=== PATIENT | female | born 1960 | race Asian ===

== ENCOUNTER 2022-03-10 18:37 | Inpatient (IN) | payer OTHER ==
[~2022-03-10] VITALS: Ht 160 cm; Wt 66.6 kg
[2022-03-10] MEDS ORDERED: SODIUM CHLORIDE 0.9% 250 ML IV ONE (19:00)
[2022-03-10] MEDS ORDERED: ATROPINE SULFATE 1MG/10ML SYR IV ONE ×2 (19:30→21:45)
[2022-03-10 19:37] LABS: HEMATOCRIT. 23.9 % (36.0-48.0); HEMOGLOBIN. 7.6 g/dL (12.0-16.0); MEAN CORPUSCULAR HEMOGLOBIN 30.4 pg (28.0-32.0); MEAN CORPUSCULAR VOLUME 94.9 fL (81.0-99.0); MEAN PLATELET VOLUME 10.1 fl (7.4-10.4); PLATELET 58 x1000/uL (130-400); RED BLOOD CELL COUNT 2.51 mill/uL (4.2-5.4); RED CELL DISTRIBUTION WIDTH 20.2 % (11.6-14.6)
[2022-03-10 19:45] LABS: CHLORIDE 99 mEq/L (98-107)
[2022-03-10 20:04] LABS: T4 FREE 0.84 ng/dL (0.76-1.46)
[2022-03-10 20:09] LABS: PLATELET ESTIMATE DECREASED
[2022-03-10] MEDS ORDERED: CALCIUM GLUCONATE 100MG/ML 10ML VIAL IV NR (20:15)
[2022-03-10 21:02] LABS: CLARITY URINE CLOUDY (CLEAR); COLOR URINE DARK YELLOW (YELLOW); KETONES URINE TRACE (NEGATIVE); LEUKOCYTE ESTERASE URINE 2+ (NEGATIVE); NITRITE URINE NEGATIVE (NEGATIVE); OCCULT BLOOD URINE TRACE (NEGATIVE); PROTEIN URINE 2+ (NEGATIVE); SPECIFIC GRAVITY URINE 1.021 (1.005-1.030)
[2022-03-11] MEDS ORDERED: ACETAMINOPHEN 325MG TABLET PO PRN (10:00)
[2022-03-11] MEDS ORDERED: ONDANSETRON HCL 4MG/2ML INJ IV PRN (10:00)
[2022-03-11] MEDS ORDERED: IPRATROPIUM/ALBUTEROL 0.5-3(2.5)MG/3ML NEB HHN PRN (10:00)
[2022-03-11] MEDS ORDERED: DIPHENHYDRAMINE 50MG/ML VIAL IV PRN (10:00)
[2022-03-11] MEDS ORDERED: DOPAMINE 400MG/250ML PREMIX 250 ML IV PRN (10:30)
[2022-03-11] MEDS ORDERED: ATROPINE SULFATE 1MG/10ML SYR IV PRN (10:30)
[2022-03-11] MEDS: FUROSEMIDE 40MG/4ML VIAL IVP SCH ×2 (11:35→17:24)
[2022-03-11] MEDS ORDERED: LEVOTHYROXINE SODIUM 100 MCG/ VIAL IV NR (13:30)
[2022-03-11 18:21] LABS: TOTAL IRON BINDING CAPACITY 169 ug/dL (250-450)
[2022-03-11 18:25] LABS: CREATINE KINASE 45 IU/L (26-192)
[2022-03-11 18:33] LABS: FOLIC ACID (FOLATE) SERUM 10.6 ng/mL (>5.38)
[2022-03-12 05:44] LABS: HEMATOCRIT. 24.3 % (36.0-48.0); MEAN CORPUSCULAR HEMOGLOBIN 31.2 pg (28.0-32.0); MEAN CORPUSCULAR VOLUME 94.5 fL (81.0-99.0); MEAN PLATELET VOLUME 10.2 fl (7.4-10.4); PLATELET 68 x1000/uL (130-400); RED BLOOD CELL COUNT 2.57 mill/uL (4.2-5.4); RED CELL DISTRIBUTION WIDTH 20.2 % (11.6-14.6)
[2022-03-12 05:47] LABS: CHLORIDE 100 mEq/L (98-107)
[2022-03-12 11:00] VITALS: BP 143/55
[2022-03-12 12:00] VITALS: BP 143/55
[2022-03-12] MEDS ORDERED: INSULIN LISPRO 100 UNITS/ML SUBCUT SCH (12:45)
[2022-03-12] MEDS: INSULIN LISPRO (LOW DOSE) 100 UNITS/ML SUBCUT SCH ×2 (14:45→18:49)
[2022-03-12 16:00] VITALS: BP 129/54
[2022-03-12] MEDS: LEVOTHYROXINE SODIUM 100 MCG/ VIAL IV SCH (16:05)
[2022-03-12 16:34] LABS: PLATELET ESTIMATE DECREASED
[2022-03-12] MEDS: BLOOD SUGAR DIAGNOSTIC STRIP TEST SCH ×2 (17:10→20:41)
[2022-03-12] MEDS: FUROSEMIDE 40MG/4ML VIAL IVP SCH (18:48)
[2022-03-12 20:00] VITALS: BP 142/59
[2022-03-13] VITALS: BP 142/47
[2022-03-13 04:00] VITALS: BP 157/57
[2022-03-13] MEDS: FUROSEMIDE 40MG/4ML VIAL IVP SCH ×2 (05:49→19:23)
[2022-03-13] MEDS: INSULIN LISPRO (LOW DOSE) 100 UNITS/ML SUBCUT SCH ×3 (05:53→17:10)
[2022-03-13] MEDS: BLOOD SUGAR DIAGNOSTIC STRIP TEST SCH ×4 (05:53→21:04)
[2022-03-13 06:20] LABS: EOSINOPHILS % 1.4 % (0.0-5.0); HEMATOCRIT. 25.4 % (36.0-48.0); HEMOGLOBIN. 8.3 g/dL (12.0-16.0); LYMPHOCYTES % 15.3 % (20.0-50.0); MEAN CORPUSCULAR HEMOGLOBIN 30.5 pg (28.0-32.0); MEAN CORPUSCULAR VOLUME 93.4 fL (81.0-99.0); MEAN PLATELET VOLUME 10.2 fl (7.4-10.4); MONOCYTES % 9.2 % (2.0-8.0); NEUTROPHILS % 73.1 % (40.0-76.0); PLATELET 83 x1000/uL (130-400); RED BLOOD CELL COUNT 2.72 mill/uL (4.2-5.4); RED CELL DISTRIBUTION WIDTH 20.6 % (11.6-14.6)
[2022-03-13 06:38] LABS: HEPATITIS B SURFACE ANTIGEN NEGATIVE
[2022-03-13 08:00] VITALS: BP 158/64
[2022-03-13 12:00] VITALS: BP 141/61
[2022-03-13 16:00] VITALS: BP 143/58
[2022-03-13] MEDS: LEVOTHYROXINE SODIUM 100 MCG/ VIAL IV SCH (19:23)
[2022-03-13 20:00] VITALS: BP 143/49
[2022-03-14] VITALS (7 sets, daily range): BP systolic 142–167; BP diastolic 56–69
[2022-03-14] MEDS: FUROSEMIDE 40MG/4ML VIAL IVP SCH ×2 (05:43→18:25)
[2022-03-14 05:51] LABS: BASOPHILS % 0.7 % (0.0-2.0); EOSINOPHILS % 0.7 % (0.0-5.0); HEMATOCRIT. 24.3 % (36.0-48.0); HEMOGLOBIN. 8.1 g/dL (12.0-16.0); MEAN CORPUSCULAR HEMOGLOBIN 31.2 pg (28.0-32.0); MEAN CORPUSCULAR VOLUME 93.6 fL (81.0-99.0); MEAN PLATELET VOLUME 9.5 fl (7.4-10.4); NEUTROPHILS % 71.6 % (40.0-76.0); PLATELET 84 x1000/uL (130-400)
[2022-03-14] MEDS: BLOOD SUGAR DIAGNOSTIC STRIP TEST SCH ×4 (06:02→20:17)
[2022-03-14] MEDS: INSULIN LISPRO (LOW DOSE) 100 UNITS/ML SUBCUT SCH ×3 (06:04→18:26)
[2022-03-14 09:06] LABS: ANTI-NUCLEAR ANTIBODIES DIRECT Negative (Negative)
[2022-03-14] MEDS: LEVOTHYROXINE SODIUM 100 MCG/ VIAL IV SCH (09:59)
[2022-03-14] MEDS: HYDRALAZINE 20MG/ML VIAL IV PRN (10:00)
[2022-03-15] VITALS (7 sets, daily range): BP systolic 124–176; BP diastolic 52–89
[2022-03-15] MEDS: BLOOD SUGAR DIAGNOSTIC STRIP TEST SCH ×4 (06:41→21:16)
[2022-03-15] MEDS: FUROSEMIDE 40MG/4ML VIAL IVP SCH ×2 (06:41→18:49)
[2022-03-15] MEDS: INSULIN LISPRO (LOW DOSE) 100 UNITS/ML SUBCUT SCH ×3 (06:57→17:10)
[2022-03-15 07:20] LABS: BASOPHILS % 0.3 % (0.0-2.0); EOSINOPHILS % 0.8 % (0.0-5.0); HEMATOCRIT. 24.1 % (36.0-48.0); HEMOGLOBIN. 8.1 g/dL (12.0-16.0); LYMPHOCYTES % 11.7 % (20.0-50.0); MEAN CORPUSCULAR HEMOGLOBIN 31.5 pg (28.0-32.0); MEAN CORPUSCULAR VOLUME 93.2 fL (81.0-99.0); MEAN PLATELET VOLUME 8.3 fl (7.4-10.4); MONOCYTES % 8.7 % (2.0-8.0); NEUTROPHILS % 78.5 % (40.0-76.0); PLATELET 72 x1000/uL (130-400); RED BLOOD CELL COUNT 2.58 mill/uL (4.2-5.4); RED CELL DISTRIBUTION WIDTH 19.9 % (11.6-14.6)
[2022-03-15 07:47] LABS: INR 1.2; PARTIAL THROMBOPLASTIN TIME 34.6 sec (23.4-31.0); PROTHROMBIN TIME 12.4 sec (9.6-11.0)
[2022-03-15] MEDS: LEVOTHYROXINE SODIUM 100 MCG/ VIAL IV SCH (08:18)
[2022-03-15] MEDS: HYDRALAZINE 20MG/ML VIAL IV PRN (08:18)
[2022-03-15 10:14] LABS: CHLORIDE 96 mEq/L (98-107)
[2022-03-15] MEDS: AMLODIPINE 10MG TABLET PO SCH (10:53)
[2022-03-15] MEDS ORDERED: FENTANYL CITRATE/PF 50MCG/ML 2ML VIAL ONE (10:59)
[2022-03-15] MEDS ORDERED: PROPOFOL 200MG/20ML VIAL IV ONE (11:00)
[2022-03-15] MEDS: HYDRALAZINE HCL 25MG TABLET PO SCH ×2 (13:21→21:33)
[2022-03-15 14:12] LABS: BG BASE EXCESS 13.1 mmol/L (-2.0-2.0); BG CARBOXYHEMOGLOBIN 0.9 % (0.5-1.5); BG DEOXYHEMOGLOBIN 1.7 % (0.0-5.0); BG HCO3 ACT 38.6 mmol/L (22.0-26.0); BG METHEMOGLOBIN 0.3 % (0.0-1.5); BG OXYGEN SATURATION 98.3 % (92.0-98.5); BG OXYHEMOGLOBIN 97.1 % (94.0-97.0); BG PCO2 56.2 mmHg (35.0-45.0); BG PH 7.455 (7.350-7.450); BG PO2 131.3 mmHg (75.0-100.0); BG SAMPLE SITE RIGHT BRACHIAL; BG TOTAL HEMOGLOBIN 8.5 g/dL (12.0-18.0); BG VENT MODE NASAL CANNULA
[2022-03-16] VITALS: BP 153/51
[2022-03-16 04:00] VITALS: BP 157/58
[2022-03-16] MEDS: BLOOD SUGAR DIAGNOSTIC STRIP TEST SCH ×4 (06:11→20:17)
[2022-03-16] MEDS: INSULIN LISPRO (LOW DOSE) 100 UNITS/ML SUBCUT SCH ×3 (06:11→18:27)
[2022-03-16] MEDS: FUROSEMIDE 40MG/4ML VIAL IVP SCH ×2 (06:15→18:31)
[2022-03-16] MEDS: HYDRALAZINE HCL 25MG TABLET PO SCH ×3 (06:16→21:08)
[2022-03-16 06:51] LABS: BASOPHILS % 0.5 % (0.0-2.0); HEMATOCRIT. 23.5 % (36.0-48.0); HEMOGLOBIN. 7.8 g/dL (12.0-16.0); LYMPHOCYTES % 17.6 % (20.0-50.0); MEAN CORPUSCULAR HEMOGLOBIN 31.1 pg (28.0-32.0); MEAN CORPUSCULAR VOLUME 94.2 fL (81.0-99.0); MEAN PLATELET VOLUME 8.8 fl (7.4-10.4); MONOCYTES % 10.3 % (2.0-8.0); NEUTROPHILS % 69.6 % (40.0-76.0); PLATELET 82 x1000/uL (130-400); RED BLOOD CELL COUNT 2.49 mill/uL (4.2-5.4); RED CELL DISTRIBUTION WIDTH 20.2 % (11.6-14.6)
[2022-03-16 08:00] VITALS: BP 149/57
[2022-03-16] MEDS: ISOSORBIDE MONONITRATE 30MG TABLET SR 24HR PO SCH (09:01)
[2022-03-16] MEDS: AMLODIPINE 10MG TABLET PO SCH (09:01)
[2022-03-16] MEDS: LEVOTHYROXINE SODIUM 100 MCG/ VIAL IV SCH (11:34)
[2022-03-16 12:00] VITALS: BP 140/54
[2022-03-16 16:00] VITALS: BP 114/56
[2022-03-16] MEDS ORDERED: ACETAZOLAMIDE 500MG ER CAPSULE PO NR (16:30)
[2022-03-16 20:00] VITALS: BP 141/61
[2022-03-17] VITALS: BP 135/51
[2022-03-17 03:23] LABS: CHLORIDE 97 mEq/L (98-107)
[2022-03-17 04:00] VITALS: BP 161/50
[2022-03-17] MEDS: HYDRALAZINE HCL 25MG TABLET PO SCH ×3 (05:49→21:37)
[2022-03-17] MEDS: FUROSEMIDE 40MG/4ML VIAL IVP SCH ×2 (05:50→17:45)
[2022-03-17] MEDS: BLOOD SUGAR DIAGNOSTIC STRIP TEST SCH ×4 (05:54→20:18)
[2022-03-17] MEDS: INSULIN LISPRO (LOW DOSE) 100 UNITS/ML SUBCUT SCH ×3 (05:54→17:46)
[2022-03-17 08:00] VITALS: BP 156/64
[2022-03-17 08:59] LABS: BG BASE EXCESS 11.8 mmol/L (-2.0-2.0); BG CARBOXYHEMOGLOBIN 0.4 % (0.5-1.5); BG DEOXYHEMOGLOBIN 0.8 % (0.0-5.0); BG FRACTION INSPIRED OXYGEN 36; BG HCO3 ACT 36.2 mmol/L (22.0-26.0); BG METHEMOGLOBIN 0.3 % (0.0-1.5); BG OXYGEN SATURATION 99.2 % (92.0-98.5); BG OXYHEMOGLOBIN 98.5 % (94.0-97.0); BG PCO2 47.4 mmHg (35.0-45.0); BG PH 7.501 (7.350-7.450); BG PO2 179.6 mmHg (75.0-100.0); BG SAMPLE SITE RIGHT RADIAL; BG TOTAL HEMOGLOBIN 8.5 g/dL (12.0-18.0); BG VENT MODE NASAL CANNULA
[2022-03-17] MEDS: LEVOTHYROXINE SODIUM 100 MCG/ VIAL IV SCH (09:24)
[2022-03-17] MEDS: AMLODIPINE 10MG TABLET PO SCH (09:25)
[2022-03-17] MEDS: ISOSORBIDE MONONITRATE 30MG TABLET SR 24HR PO SCH (09:25)
[2022-03-17 12:00] VITALS: BP 135/54
[2022-03-17 16:00] VITALS: BP 117/60
[2022-03-17 20:00] VITALS: BP 146/63
[2022-03-18] VITALS (10 sets, daily range): BP systolic 103–151; BP diastolic 51–80
[2022-03-18] MEDS: HYDRALAZINE HCL 25MG TABLET PO SCH ×3 (05:46→22:00)
[2022-03-18] MEDS: FUROSEMIDE 40MG/4ML VIAL IVP SCH ×2 (05:46→17:06)
[2022-03-18] MEDS: BLOOD SUGAR DIAGNOSTIC STRIP TEST SCH ×4 (06:16→21:00)
[2022-03-18] MEDS: INSULIN LISPRO (LOW DOSE) 100 UNITS/ML SUBCUT SCH ×3 (06:16→16:50)
[2022-03-18 07:40] LABS: EOSINOPHILS % 2.8 % (0.0-5.0); HEMATOCRIT. 24.9 % (36.0-48.0); HEMOGLOBIN. 8.1 g/dL (12.0-16.0); MEAN CORPUSCULAR HEMOGLOBIN 31.4 pg (28.0-32.0); MEAN CORPUSCULAR VOLUME 96.3 fL (81.0-99.0); MEAN PLATELET VOLUME 9.1 fl (7.4-10.4); MONOCYTES % 12.7 % (2.0-8.0); NEUTROPHILS % 63.5 % (40.0-76.0); PLATELET 104 x1000/uL (130-400); RED BLOOD CELL COUNT 2.59 mill/uL (4.2-5.4)
[2022-03-18] MEDS: LEVOTHYROXINE SODIUM 100 MCG/ VIAL IV SCH (08:26)
[2022-03-18] MEDS: AMLODIPINE 10MG TABLET PO SCH (08:27)
[2022-03-18] MEDS: ISOSORBIDE MONONITRATE 30MG TABLET SR 24HR PO SCH (08:27)
[2022-03-18] MEDS ORDERED: POTASSIUM CHLORIDE 20MEQ TABLET SR PO SCH (11:15)
[2022-03-18 16:36] LABS: BG BASE EXCESS 13.7 mmol/L (-2.0-2.0); BG CARBOXYHEMOGLOBIN 0.3 % (0.5-1.5); BG DEOXYHEMOGLOBIN 12.2 % (0.0-5.0); BG FRACTION INSPIRED OXYGEN 21; BG HCO3 ACT 39.4 mmol/L (22.0-26.0); BG METHEMOGLOBIN 0.4 % (0.0-1.5); BG OXYGEN SATURATION 87.7 % (92.0-98.5); BG OXYHEMOGLOBIN 87.1 % (94.0-97.0); BG PO2 52.9 mmHg (75.0-100.0); BG SAMPLE SITE RIGHT RADIAL; BG TOTAL HEMOGLOBIN 8.5 g/dL (12.0-18.0); BG VENT MODE ROOM AIR
[2022-03-19] VITALS: BP 112/80
[2022-03-19 04:00] VITALS: BP 148/60
[2022-03-19] MEDS: BLOOD SUGAR DIAGNOSTIC STRIP TEST SCH ×4 (06:12→21:55)
[2022-03-19] MEDS: INSULIN LISPRO (LOW DOSE) 100 UNITS/ML SUBCUT SCH ×3 (06:12→16:39)
[2022-03-19 06:36] LABS: BASOPHILS % 0.8 % (0.0-2.0); EOSINOPHILS % 2.9 % (0.0-5.0); HEMATOCRIT. 24.9 % (36.0-48.0); HEMOGLOBIN. 8.3 g/dL (12.0-16.0); LYMPHOCYTES % 23.4 % (20.0-50.0); MEAN CORPUSCULAR HEMOGLOBIN 31.8 pg (28.0-32.0); MEAN CORPUSCULAR VOLUME 95.3 fL (81.0-99.0); MEAN PLATELET VOLUME 8.8 fl (7.4-10.4); NEUTROPHILS % 58.9 % (40.0-76.0); PLATELET 100 x1000/uL (130-400); RED BLOOD CELL COUNT 2.61 mill/uL (4.2-5.4); RED CELL DISTRIBUTION WIDTH 20.2 % (11.6-14.6)
[2022-03-19] MEDS: HYDRALAZINE HCL 25MG TABLET PO SCH ×3 (06:41→21:55)
[2022-03-19] MEDS: FUROSEMIDE 40MG/4ML VIAL IVP SCH ×2 (06:41→17:26)
[2022-03-19 08:12] VITALS: BP 142/58
[2022-03-19] MEDS: LEVOTHYROXINE SODIUM 100 MCG/ VIAL IV SCH (08:30)
[2022-03-19] MEDS: AMLODIPINE 10MG TABLET PO SCH (08:31)
[2022-03-19] MEDS: ISOSORBIDE MONONITRATE 30MG TABLET SR 24HR PO SCH (08:31)
[2022-03-19 11:25] VITALS: BP 126/54
[2022-03-19] MEDS ORDERED: ACETAZOLAMIDE 500MG ER CAPSULE PO NR (12:30)
[2022-03-19 16:00] VITALS: BP 128/59
[2022-03-19 20:00] VITALS: BP 127/55
[2022-03-20] VITALS: BP 129/48
[2022-03-20 04:00] VITALS: BP 117/57
[2022-03-20] MEDS: HYDRALAZINE HCL 25MG TABLET PO SCH ×3 (06:00→21:31)
[2022-03-20] MEDS: FUROSEMIDE 40MG/4ML VIAL IVP SCH ×2 (06:51→16:51)
[2022-03-20] MEDS: INSULIN LISPRO (LOW DOSE) 100 UNITS/ML SUBCUT SCH ×3 (07:01→16:34)
[2022-03-20] MEDS: BLOOD SUGAR DIAGNOSTIC STRIP TEST SCH ×4 (07:03→20:28)
[2022-03-20 08:06] VITALS: BP 129/50
[2022-03-20] MEDS: AMLODIPINE 10MG TABLET PO SCH (08:23)
[2022-03-20] MEDS: LEVOTHYROXINE SODIUM 100 MCG/ VIAL IV SCH (08:23)
[2022-03-20] MEDS: ISOSORBIDE MONONITRATE 30MG TABLET SR 24HR PO SCH (08:23)
[2022-03-20 08:29] LABS: EOSINOPHILS % 1.7 % (0.0-5.0); HEMATOCRIT. 24.2 % (36.0-48.0); HEMOGLOBIN. 7.8 g/dL (12.0-16.0); LYMPHOCYTES % 19.4 % (20.0-50.0); MEAN CORPUSCULAR VOLUME 96.5 fL (81.0-99.0); MEAN PLATELET VOLUME 9.1 fl (7.4-10.4); MONOCYTES % 10.9 % (2.0-8.0); PLATELET 94 x1000/uL (130-400)
[2022-03-20] MEDS ORDERED: POTASSIUM CHLORIDE 20MEQ TABLET SR PO NR (10:30)
[2022-03-20] MEDS: POLYETHYLENE GLYCOL 3350 (17GM) 1 DOSE PACK PO SCH (10:37)
[2022-03-20 11:18] VITALS: BP 122/66
[2022-03-20 16:34] VITALS: BP 101/43
[2022-03-20] MEDS ORDERED: LACTULOSE 20G/30ML UDC PO NR (17:30)
[2022-03-20 20:00] VITALS: BP 129/89
[2022-03-21] VITALS (9 sets, daily range): BP systolic 83–131; BP diastolic 42–66
[2022-03-21] MEDS: HYDRALAZINE HCL 25MG TABLET PO SCH ×3 (05:29→22:00)
[2022-03-21] MEDS: FUROSEMIDE 40MG/4ML VIAL IVP SCH (05:29)
[2022-03-21] MEDS: INSULIN LISPRO (LOW DOSE) 100 UNITS/ML SUBCUT SCH ×3 (06:15→19:05)
[2022-03-21] MEDS: BLOOD SUGAR DIAGNOSTIC STRIP TEST SCH ×4 (06:15→20:46)
[2022-03-21 06:50] LABS: BASOPHILS % 1.2 % (0.0-2.0); EOSINOPHILS % 1.2 % (0.0-5.0); HEMATOCRIT. 24.6 % (36.0-48.0); HEMOGLOBIN. 8.1 g/dL (12.0-16.0); LYMPHOCYTES % 19.4 % (20.0-50.0); MEAN CORPUSCULAR HEMOGLOBIN 31.7 pg (28.0-32.0); MEAN CORPUSCULAR VOLUME 95.8 fL (81.0-99.0); MEAN PLATELET VOLUME 9.1 fl (7.4-10.4); NEUTROPHILS % 66.2 % (40.0-76.0); PLATELET 94 x1000/uL (130-400); RED BLOOD CELL COUNT 2.57 mill/uL (4.2-5.4)
[2022-03-21 09:31] LABS: INR 1.1; PROTHROMBIN TIME 11.9 sec (9.6-11.0)
[2022-03-21] MEDS: ISOSORBIDE MONONITRATE 30MG TABLET SR 24HR PO SCH (10:08)
[2022-03-21] MEDS: POLYETHYLENE GLYCOL 3350 (17GM) 1 DOSE PACK PO SCH (10:08)
[2022-03-21] MEDS: AMLODIPINE 10MG TABLET PO SCH (10:09)
[2022-03-21] MEDS: LEVOTHYROXINE SODIUM 100 MCG/ VIAL IV SCH (10:09)
[2022-03-21 15:34] LABS: INR 1.1; PROTHROMBIN TIME 12.2 sec (9.6-11.0)
[2022-03-21] MEDS ORDERED: ACETAZOLAMIDE 250MG TABLET PO NR (17:30)
[2022-03-21] MEDS ORDERED: EPINEPHRINE 5 MG in SODIUM CHLORIDE 0.9% 245 ML IV PRN (23:00)
[2022-03-21] MEDS ORDERED: PHENYLEPHRINE 50 MG in DEXT 5% WATER 245 ML IV PRN (23:00)
[2022-03-21] MEDS ORDERED: SODIUM CHLORIDE 0.9% 1,000 ML IV SCH (23:00)
[2022-03-21] MEDS ORDERED: NOREPINEPHRINE 8 MG in DEXT 5% WATER 242 ML IV PRN (23:00)
[2022-03-21] MEDS ORDERED: PHENYLEPHRINE 100 MG in DEXT 5% WATER 240 ML IV PRN (23:03)
[2022-03-21 23:05] LABS: BG BASE EXCESS 13.7 mmol/L (-2.0-2.0); BG CARBOXYHEMOGLOBIN 0.9 % (0.5-1.5); BG DEOXYHEMOGLOBIN 3.3 % (0.0-5.0); BG FRACTION INSPIRED OXYGEN 100; BG HCO3 ACT 41.9 mmol/L (22.0-26.0); BG METHEMOGLOBIN 0.7 % (0.0-1.5); BG OXYGEN SATURATION 96.6 % (92.0-98.5); BG OXYHEMOGLOBIN 95.1 % (94.0-97.0); BG PCO2 100.9 mmHg (35.0-45.0); BG PH 7.236 (7.350-7.450); BG PO2 116.7 mmHg (75.0-100.0); BG SAMPLE SITE RIGHT BRACHIAL; BG TOTAL HEMOGLOBIN 4.8 g/dL (12.0-18.0); BG VENT MODE VENT - AC
[2022-03-21] MEDS ORDERED: MAGNESIUM 2 G PREMIX 50 ML IV NR (23:15)
[2022-03-21 23:49] LABS: BASOPHILS % 0.3 % (0.0-2.0); EOSINOPHILS % 0.5 % (0.0-5.0); LYMPHOCYTES % 23.6 % (20.0-50.0); MEAN CORPUSCULAR HEMOGLOBIN 30.9 pg (28.0-32.0); MEAN CORPUSCULAR VOLUME 108.2 fL (81.0-99.0); MEAN PLATELET VOLUME 9.1 fl (7.4-10.4); MONOCYTES % 4.1 % (2.0-8.0); NEUTROPHILS % 71.5 % (40.0-76.0); PLATELET 93 x1000/uL (130-400); RED BLOOD CELL COUNT 1.31 mill/uL (4.2-5.4); RED CELL DISTRIBUTION WIDTH 20.6 % (11.6-14.6)
[2022-03-22] LABS: HEMATOCRIT. 14.1 % (36.0-48.0)
[2022-03-22 00:01] LABS: CHLORIDE 100 mEq/L (98-107)
[2022-03-22] MEDS ORDERED: KEPP500 PO (01:17)
[2022-03-22] MEDS ORDERED: FUROSEMIDE 40MG TABLET PO SCH (09:00)
== END 2022-03-22 01:58 | DRG 194 ==
LOC: ER 18:52 → EDBEDREQ 20:31 → MICUSO 20:36 → ENRESERV 03-11 17:21 → 8WST 03-12 10:35 → CVICU 03-21 22:10
PROVIDERS: ADMIT Internal Medicine; ATTEND Internal Medicine
PROC: 079T3ZX Drainage of Bone Marrow, Percutaneous Approach, Diagnostic (ICD-10-PCS; 2022-03-15)
PROC: 0BH17EZ Insertion of Endotracheal Airway into Trachea, Via Natural or Artificial Opening (ICD-10-PCS; principal; 2022-03-21)
PROC: 5A1935Z Respiratory Ventilation, Less than 24 Consecutive Hours (ICD-10-PCS; 2022-03-21)
PROC: 0W993ZZ Drainage of Right Pleural Cavity, Percutaneous Approach (ICD-10-PCS; 2022-03-21)
PROC: 5A12012 Performance of Cardiac Output, Single, Manual (ICD-10-PCS; 2022-03-21)
PROC: 5A2204Z Restoration of Cardiac Rhythm, Single (ICD-10-PCS; 2022-03-21)
DX: I13.0 Hypertensive heart and chronic kidney disease with heart failure and stage 1 through stage 4 chronic kidney disease, or unspecified chronic kidney disease (principal); J96.01 Acute respiratory failure with hypoxia; D61.818 Other pancytopenia; N17.9 Acute kidney failure, unspecified; I27.29 Other secondary pulmonary hypertension; E46 Unspecified protein-calorie malnutrition; N18.4 Chronic kidney disease, stage 4 (severe); D63.1 Anemia in chronic kidney disease; E11.22 Type 2 diabetes mellitus with diabetic chronic kidney disease; Z20.822 Contact with and (suspected) exposure to COVID-19; N04.9 Nephrotic syndrome with unspecified morphologic changes; B37.49 Other urogenital candidiasis; I48.91 Unspecified atrial fibrillation; E03.9 Hypothyroidism, unspecified; E78.00 Pure hypercholesterolemia, unspecified; I50.33 Acute on chronic diastolic (congestive) heart failure; I07.1 Rheumatic tricuspid insufficiency; E66.9 Obesity, unspecified; M71.21 Synovial cyst of popliteal space [Baker], right knee; Z68.28 Body mass index [BMI] 28.0-28.9, adult; I46.9 Cardiac arrest, cause unspecified; I49.01 Ventricular fibrillation
CPT/HCPCS: 31500; 32555; 36415; 36600; 38220; 71045; 76604; 76700; 76770; 80048; 80053; 80061; 80320; 81003; 82375; 82533; 82550; 82575; 82607; 82728; 82746; 82805; 82962; 83036; 83540; 83550; 83605; 83615; 83735; 83880; 84100; 84134; 84155; 84156; 84439; 84443; 84481; 84484; 85025; 85060; 85097; 86038; 86160; 86376; 86705; 86709; 86803; 87070; 87340; 87426; 88108; 92950; 93005; 93306; 93970; 94002; 97162; 99285; A6261; C1893; J0360; J0461; J0610; J1815; J1940; J2405; J2704; J3010; J3490; J7050; J7060; A4315; G0480